=== PATIENT | female | born 1990 | race Caucasian/White ===

== ENCOUNTER 2017-04-21 10:20 | Outpatient (CLI) | payer BC ==
--- NOTE | 2017-04-21 11:33 | RAD ---
THREE VIEWS CERVICAL SPINE: History: Neck pain radiating down the left arm. Comparison: None. FINDINGS: Lateral neutral, lateral extension, and lateral flexion views of the cervical spine demonstrates pres ervation of the vertebral body height. There is no fracture. Disc space heights are preserved. Preden michelle space is normal. No prevertebral soft tissue swelling. Straightening of the normal cervical lordo sis in the neutral position. No abnormal motion upon flexion or extension. IMPRESSION: Straightening of the normal cervical lordosis which is presumed to be due to patient position or musc le spasm. No abnormal motion upon extension of flexion. POS: [facility]
--- NOTE | 2017-04-21 12:01 | MRI ---
MRI CERVICAL SPINE WITHOUT CONTRAST: Date: 04/21/17 COMPARISON: 08/28/16. HISTORY: Spondylosis of cervical spine. Neck pain with pain radiating down the left arm. TECHNIQUE: Cervical spine MRI is performed with and without intravenous Gadolinium administration. Multisequenti al, multiplanar imaging is performed. FINDINGS: There is straightening of the normal cervical lordosis, which is felt to be due to patient positionin g. Cervical spine vertebral body heights are maintained. There is no fracture. There is appropriate T 1 marrow signal intensity of the cervical vertebra. No MR evidence to suggest ligamentous injury. Visualized brain parenchyma, cervicomedullary junction, cervical cord, and the upper thoracic cord velez ve a normal size and signal intensity. Grade I anterolisthesis of C4 upon C5. C2-C3: No significant disc osteophyte complex. No significant central canal stenosis or foraminal narrowing. C3-C4: No significant disc osteophyte complex. No significant central canal stenosis. Neural foramina are pa tent. C4-C5: No significant disc osteophyte complex. No significant central canal stenosis. Mild right foraminal n arrowing due to degenerative change of the uncovertebral joint. Left neural foramen is patent. C5-C6: No significant disc osteophyte complex. No significant central canal stenosis or foraminal narrowing. C6-C7: No significant disc osteophyte complex. No significant central canal stenosis. Foramina are patent. C7-T1: No significant disc osteophyte complex. No significant central canal stenosis. Neural foramina are pa tent. IMPRESSION: No significant central canal stenosis or foraminal narrowing. POS: [facility]
== END 2017-04-21 10:21 | disposition home or self-care (01) ==
LOC: TBSIIMAG 10:20
PROVIDERS: ATTEND Nurse Practitioner Family
DX: M47.812 Spondylosis without myelopathy or radiculopathy, cervical region (principal)
CPT/HCPCS: 72040; 72141